=== PATIENT | female | born 1975 | race Caucasian/White ===

== ENCOUNTER 2025-04-25 03:30 | Emergency (ER) | payer BC ==
[~2025-04-25] VITALS: Ht 162.6 cm; Wt 66.0 kg
[2025-04-25 03:49] VITALS: O2SAT 100
[2025-04-25 03:55] VITALS: BP 122/77; PULSE 70; RESP 18; TEMP 37.1; O2SAT 100
== END 2025-04-25 05:01 | disposition left against medical advice (07) ==
LOC: ER 04:19
DX: M25.561 Pain in right knee (principal); M25.551 Pain in right hip; R20.0 Anesthesia of skin; Z53.21 Procedure and treatment not carried out due to patient leaving prior to being seen by health care provider